=== PATIENT | male | born 1960 | race African-American/Black ===

== ENCOUNTER 2020-09-30 03:53 | Emergency (ER) | payer SELFPAY ==
[~2020-09-30] VITALS: Ht 188 cm; Wt 102.1 kg
== END 2020-09-30 04:05 | disposition home or self-care (01) ==
LOC: ER 04:00
DX: H10.9 Unspecified conjunctivitis (principal); I10 Essential (primary) hypertension; E11.9 Type 2 diabetes mellitus without complications; I50.9 Heart failure, unspecified; Z95.810 Presence of automatic (implantable) cardiac defibrillator
CPT/HCPCS: 99282